=== PATIENT | male | born 1950 | race Caucasian/White ===

== ENCOUNTER 2017-02-24 13:35 | Observation (INO) | payer OTHER, MEDICARE ==
[~2017-02-24] VITALS: Ht 180.3 cm; Wt 78.4 kg
[~2017-02-24 13:35] MED LIST: LO-DOSE ASPIRIN81 M1 PO; ZANTAC150 MG PO
[2017-02-24 14:25] LABS: HEMATOCRIT 40.4 % (38.0-50.0); MCH 32.6 PG (29.0-34.0); MCHC 35.4 G/DL (30.0-36.0); MCV 92.2 FL (86-99); MEAN PLAT.VOLUME 9.8 uM^3 (9.0-12.4); PLATELET COUNT 215 K/uL (156-360); RBC DIS.WIDTH-CV 12.9 % (11.8-14.6); RBC DIS.WIDTH-SD 43.8 % (39-53); RED BLOOD COUNT 4.38 M/uL (4.00-5.50); WHITE BLOOD COUNT 6.5 K/uL (4.1-10.2)
[2017-02-24 14:36] LABS: CHLORIDE 105 mEq/L (99-109); POTASSIUM 4.2 mEq/L (3.7-5.4); SODIUM 140 mEq/L (136-147)
[2017-02-24 14:37] LABS: GLUCOSE 94 mg/dL (70-99)
[2017-02-24 14:39] LABS: ANION GAP 10 MEQ/L (2-14)
[2017-02-24 14:42] LABS: UREA NITROGEN (BUN) 12 mg/dL (9-23)
[2017-02-24 14:49] LABS: TROP-I INTERPRETATION NEGATIVE; TROPONIN-I 0.03 ng/mL (0.0-0.30)
[2017-02-24 14:53] LABS: D-DIMER ELISA 0.26 mg/L FEU (< 0.57)
[2017-02-24 14:54] LABS: GFR ESTIMATE (CALCULATED) > 59 mL/min/
[2017-02-24] MEDS ORDERED: NEXIUM40 MG PO (16:02)
[2017-02-24] MEDS ORDERED: ADVIL200 MG PO (16:03)
[2017-02-24 18:47] LABS: TOTAL CHOLESTEROL 156 mg/dL (Desirable<200); TRIGLYCERIDES 43 MG/DL (Normal: <150)
[2017-02-24 18:48] LABS: HDL CHOLESTEROL 55 MG/DL (Desirable>=40); LDL CHOLESTEROL 92 mg/dL (Desirable<100); NON-HDL CHOLESTEROL 101 mg/dL (Desirable<160)
[2017-02-24 19:02] VITALS: BP 137/73
[2017-02-24 20:38] LABS: TROP-I INTERPRETATION NEGATIVE; TROPONIN-I 0.03 ng/mL (0.0-0.30)
[2017-02-24 23:42] VITALS: BP 121/74
[2017-02-25 02:54] LABS: TROP-I INTERPRETATION NEGATIVE; TROPONIN-I 0.03 ng/mL (0.0-0.30)
[2017-02-25 04:45] VITALS: BP 151/77
[2017-02-25 07:16] LABS: HEMATOCRIT 37.1 % (38.0-50.0); MCH 32.2 PG (29.0-34.0); MCHC 34.2 G/DL (30.0-36.0); MCV 93.9 FL (86-99); MEAN PLAT.VOLUME 10.3 uM^3 (9.0-12.4); PLATELET COUNT 186 K/uL (156-360); RBC DIS.WIDTH-SD 44.7 % (39-53); RED BLOOD COUNT 3.95 M/uL (4.00-5.50); WHITE BLOOD COUNT 7.1 K/uL (4.1-10.2)
[2017-02-25 07:29] LABS: ALKALINE PHOSPHATASE 54 IU/L (3-129); ANION GAP 7 MEQ/L (2-14); CHLORIDE 103 MEQ/L (99-109); GFR ESTIMATE (CALCULATED) > 59 mL/min/; GLUCOSE 88 mg/dL (70-99); POTASSIUM 4.2 MEQ/L (3.7-5.4); SAMPLE HEMOLYSIS CHECK 0; SAMPLE ICTERIC CHECK 0; SAMPLE LIPEMIA CHECK 0; SODIUM 139 MEQ/L (136-147); TOTAL BILIRUBIN 1.4 MG/DL (0.0-1.0); UREA NITROGEN (BUN) 11 mg/dL (9-23)
[2017-02-25 08:21] VITALS: BP 117/77
[2017-02-25 09:33] LABS: INFLUENZA A VIRAL ANTIGEN NEGATIVE; INFLUENZA B VIRAL ANTIGEN NEGATIVE
[2017-02-25 12:06] VITALS: BP 122/69
[2017-02-25 16:03] VITALS: BP 119/75
[2017-02-25 20:00] VITALS: BP 123/66
[2017-02-26 00:14] VITALS: BP 117/70
[2017-02-26 03:58] VITALS: BP 119/66
[2017-02-26 06:54] LABS: EOSINOPHIL (%) 4.1 % (0-5); EOSINOPHIL COUNT 0.3 K/uL (0-0.3); HEMATOCRIT 37.8 % (38.0-50.0); IMMATURE GRANULOCYTE (%) 0.3 % (0.0-0.7); INSTRUMENT ABS NEUTROPHIL CT 3.8 K/uL; LYMPHOCYTE COUNT 1.5 K/uL (1.0-2.8); MCH 31.9 PG (29.0-34.0); MCHC 34.1 G/DL (30.0-36.0); MCV 93.3 FL (86-99); MEAN PLAT.VOLUME 10.4 uM^3 (9.0-12.4); MONOCYTE (%) 11.6 % (3-12); MONOCYTE COUNT 0.7 K/uL (0-0.8); NEUTROPHIL (%) 60.1 % (45-76); NEUTROPHIL COUNT 3.8 K/uL (1.8-6.4); PLATELET COUNT 212 K/uL (156-360); RBC DIS.WIDTH-CV 12.8 % (11.8-14.6); RED BLOOD COUNT 4.05 M/uL (4.00-5.50); WHITE BLOOD COUNT 6.3 K/uL (4.1-10.2)
[2017-02-26 07:16] LABS: ANION GAP 8 MEQ/L (2-14); CHLORIDE 103 MEQ/L (99-109); GFR ESTIMATE (CALCULATED) > 59 mL/min/; GLUCOSE 87 mg/dL (70-99); MAGNESIUM 1.9 mg/dl (1.3-2.7); POTASSIUM 4.2 MEQ/L (3.7-5.4); SAMPLE HEMOLYSIS CHECK 0; SAMPLE ICTERIC CHECK 0; SAMPLE LIPEMIA CHECK 0; SODIUM 139 MEQ/L (136-147); UREA NITROGEN (BUN) 12 mg/dL (9-23)
[2017-02-26 07:28] VITALS: BP 132/76
[2017-02-26 12:13] VITALS: BP 113/65
[2017-02-26] MEDS ORDERED: CEFTIN500 MG PO (14:38)
[2017-02-26] MEDS ORDERED: METOPROLOL SUCC25 MG PO ×2 (16:27→16:28)
== END 2017-02-26 16:42 | disposition home or self-care (01) ==
LOC: EME 13:35 → EDOF 17:08 → 5WEST 17:08
PROVIDERS: Emergency Medicine; Internal Medicine
DX: J18.9 Pneumonia, unspecified organism (principal); J90 Pleural effusion, not elsewhere classified; I49.9 Cardiac arrhythmia, unspecified; R07.9 Chest pain, unspecified; I25.10 Atherosclerotic heart disease of native coronary artery without angina pectoris; Z87.891 Personal history of nicotine dependence; K21.9 Gastro-esophageal reflux disease without esophagitis; Z87.11 Personal history of peptic ulcer disease
CPT/HCPCS: 71010; 71020; 80048; 80053; 80061; 83735; 83880; 84484; 85025; 85027; 85379; 87040; 87449; 87502; 93005; 99281; 99284; G0378; J0456; J0696; J1650; J1956; J7050